=== PATIENT | female | born 1970 | race African-American/Black ===

== ENCOUNTER 2017-08-28 22:20 | Emergency (ER) | payer BC ==
[~2017-08-28] VITALS: Ht 167.6 cm; Wt 76.2 kg
[2017-08-28] MEDS ORDERED: KETOROLAC TROMETHAMINE 60 MG/2 ML VIAL IM ONE (22:45)
== END 2017-08-28 23:01 | disposition home or self-care (01) ==
LOC: FSED 22:20
DX: M25.532 Pain in left wrist (principal); M77.8 Other enthesopathies, not elsewhere classified
CPT/HCPCS: 99282; J1885